=== PATIENT | male | born 1985 | race Caucasian/White ===

== ENCOUNTER 2024-01-11 02:53 | Emergency (ER) | payer BC, SELFPAY ==
[2024-01-11 02:54] VITALS: BP 142/90
--- NOTE | 2024-01-11 03:18 | ED.GENMED ---
Addendum entered and electronically signed by Nico Trevino DO 01/11/24 09:44:
Call from radiology over read IV contrast scan shows possible renal cell carcinoma
Reviewed over [place] text with radiology and urology who knows the patient from himprior procedure the office will follow-up with him
I called the patient's cell phone went right to voicemail unable to leave a message I called his home phone I reviewed the above with his , to be expecting a call from urology, and the importance of following up with them, returning to the ER if
worsening symptoms
Original Note:
History of Present Illness
<YOHAN Michael - Last Filed: 01/11/24 06:38>
General
Chief Complaint: Flank Pain
Source: patient
Exam Limitations: none
Time Seen by Provider: 01/11/24 03:03
Nursing documentation reviewed up to this point in time: agreed with
Travel History
Have you had any contact with someone who has COVID-19?: No
Do you have any symptoms of coronavirus? Fever > 100 degrees, chills, cough, shortness of breath, sore throat, loss of taste or smell, muscle aches, or headache?: No
History of Present Illness
History of Present Illness:
This is a 38 year old male, with a PMH of kidney stones, who presents to the ED c/o Left sided flank pain x 5 hours. Pt states he had surgery 2 months ago to remove a kidney stone and was told he also had 3 other stones that were not obstructing at
that time. Tonight, the pain started after he ate wings for dinner and it has been a worsening constant pain. He adds that the pain has begun to radiate down to the left side of his abdomen. He is also having associated urinary urgency, nausea, and
1 episode of emesis. Pt denies any fever, CP, SOB, dysuria, hematuria, frequency, diarrhea, or constipation.
Pt denies alcohol, tobacco, or drug use. He is not currently taking any medications. He has a family history of kidney stones in his mother.
Past History
<YOHAN Michael - Last Filed: 01/11/24 06:38>
Past History
ED Past Medical History: Other (Kidney stones)
ED Past Surgical History: Urological (kidney stone extraction)
Patient has exhibited threatening behavior?: No
Social History
Tobacco: Non-smoker
Alcohol: None
Drug: None
Family History
Family History: Diabetes, CAD and Other (kidney stones)
Phy Exam
<YOHAN Michael - Last Filed: 01/11/24 06:38>
General Physical Exam
General Presentation: moderate distress and other (pt is actively pacing around the room trying to get into a comfortable position)
General age: appears stated age
General Skin: warm and dry
General Habitus: normal
General Mental: alert
General Hydration: appears well hydrated
ENT Exam
ENT Exam: pharynx normal, neck supple, normocephalic and swallowing well
Eye Exam
Eye Exam: PERRL
Cardiovascular Exam
Cardiovascular Exam: regular rate/rhythm, no edema, no murmur and normal peripheral pulses
Heart Sounds: normal
Pulmonary Exam
Pulmonary Exam: lungs clear, no respiratory distress, no rales, no crackles, no rhonchi, no wheezing and no cough
Gastrointestinal Exam
Gastrointestinal Exam: normal bowel sounds, non tender, soft, non distended and cva tenderness (left sided)
Neurological Exam
Neurological Exam: alert and oriented x3
Musculoskeletal Exam
Musculoskeletal Exam: full ROM and no edema
Skin Exam
Skin Exam: normal color and warm/dry
Psychiatric Exam
Psychiatric Exam: normal mood/affect
Course
<YOHAN Michael - Last Filed: 01/11/24 06:38>
Orders/Labs/Results
Orders:
Orders
01/11/24 03:17
CT Abd/pelvis W Iv Cont Urgent
Comment:
Reason For Exam: Left flank pain
01/11/24 03:26
0.9% Sodium Chloride 1000 ml [Nss] 1,000 ml IV BOLUS
Ketorolac [Toradol] 30 mg IV NOW STA
01/11/24 03:39
Urinalysis Reflex To Culture Urgent
Date Specimen was Collected: 01/11/24
Time Specimen was Collected: 06:56
01/11/24 04:00
Complete Blood Count/With Diff Urgent
Comprehensive Metabolic Panel Urgent
01/11/24 04:13
HYDROmorphone [Dilaudid] 0.5 mg IV NOW STA
01/11/24 05:10
Tamsulosin [Flomax] 0.4 mg PO NOW STA
Abnormal Lab Results
01/11/24
04:00
Hct 38.8 L %
(39.0-52.0)
Absolute Monos (auto) 0.8 H 10^3/uL
(0.1-0.6)
Monocytes % 12.1 H %
(1.7-9.3)
BUN 25 H mg/dl
(9-20)
Glucose 105 H mg/dl
(70-99)
Total Bilirubin 1.4 H mg/dl
(0.2-1.3)
01/11/24 04:00
01/11/24 04:00
Vital Signs
Initial and Last Documented VS:
Initial Vital Signs
Temp Pulse Resp BP Pulse Ox
98.1 F 54 18 142/90 100
01/11/24 02:54 01/11/24 02:54 01/11/24 02:54 01/11/24 02:54 01/11/24 02:54
Last Documented Vital Signs
Temp Pulse Resp BP Pulse Ox
98.1 F 54 18 142/90 100
01/11/24 02:54 01/11/24 02:54 01/11/24 02:54 01/11/24 02:54 01/11/24 02:54
<Michael Mendoza, DO - Last Filed: 01/11/24 07:02>
Orders/Labs/Results
Orders:
Orders
01/11/24 03:17
CT Abd/pelvis W Iv Cont Urgent
Comment:
Reason For Exam: Left flank pain
01/11/24 03:26
0.9% Sodium Chloride 1000 ml [Nss] 1,000 ml IV BOLUS
Ketorolac [Toradol] 30 mg IV NOW STA
01/11/24 03:39
Urinalysis Reflex To Culture Urgent
Date Specimen was Collected: 01/11/24
Time Specimen was Collected: 06:56
01/11/24 04:00
Complete Blood Count/With Diff Urgent
Comprehensive Metabolic Panel Urgent
01/11/24 04:13
HYDROmorphone [Dilaudid] 0.5 mg IV NOW STA
01/11/24 05:10
Tamsulosin [Flomax] 0.4 mg PO NOW STA
Abnormal Lab Results
01/11/24
04:00
Hct 38.8 L %
(39.0-52.0)
Absolute Monos (auto) 0.8 H 10^3/uL
(0.1-0.6)
Monocytes % 12.1 H %
(1.7-9.3)
BUN 25 H mg/dl
(9-20)
Glucose 105 H mg/dl
(70-99)
Total Bilirubin 1.4 H mg/dl
(0.2-1.3)
01/11/24 04:00
01/11/24 04:00
Vital Signs
Initial and Last Documented VS:
Initial Vital Signs
Temp Pulse Resp BP Pulse Ox
98.1 F 54 18 142/90 100
01/11/24 02:54 01/11/24 02:54 01/11/24 02:54 01/11/24 02:54 01/11/24 02:54
Last Documented Vital Signs
Temp Pulse Resp BP Pulse Ox
98.1 F 54 18 142/90 100
01/11/24 02:54 01/11/24 02:54 01/11/24 02:54 01/11/24 02:54 01/11/24 02:54
<YOHAN Michael - Last Filed: 01/11/24 06:38>
*Critical Care Note
Total Time (30-74mins, 75-104mins- exclusive of procedures): Not Applicable
ED Attending Note
<YOHAN Michael - Last Filed: 01/11/24 06:38>
-
Portions of this chart may have been created with voice recognition software.� Occasional wrong word or��sound alike� substitutions may have occurred due to the inherent limitations of voice recognition software.
<Michael Mendoza DO - Last Filed: 01/11/24 07:02>
ED Attending Note
Patient seen and examined by attending physician: Yes
I performed the substantive portion of visit, reviewed & personally made and approve the management plan that is documented in note by myself or GARCÍA.: Yes
ED Attending Note:
Pleasant 38-year-old male presents with left-sided flank pain that has been present for the last 5 hours. Patient states that driving was especially painful today especially when going over bumps. Patient has a past medical history significant for
kidney stone and states that he had to have urological surgery 2 months ago for his most recent stone. Patient reports having the pain after eating dinner tonight. Patient denies fever, chills, nausea or vomiting. Has had normal bowel movements.
Patient was seen in conjunction with the PA student. I have reviewed and agree with the history and treatment plan presented. On my independent physical exam, patient is awake, alert, and oriented x3, moderate acute distress. Heart regular rate
and rhythm. Lungs clear to auscultation bilaterally. Abdomen has some suprapubic tenderness palpation. Left CVA tenderness.
Discharge Plan
Departure
Patient with high blood pressure during this ER visit?: Yes
Condition: Good
Discharge Problem:
Kidney stone
Instructions: How to Strain Your Urine, Narcotic Pain Medication
Prescriptions:
New
tamsulosin [Flomax] 0.4 mg capsule
0.4 mg PO DAILY Qty: 7 0RF
oxycodone-acetaminophen [Percocet] 5-325 mg tablet
1 tab PO Q4HPRN PRN (Reason: pain) Qty: 10 0RF
diclofenac sodium 75 mg tablet,delayed release (DR/EC)
75 mg PO BID Qty: 10 0RF
Referrals:
Guillermo Zhao MD [Active] -
PRIVATE,PHYSICIAN [Family Provider] -
Activity Restrictions/Additional Instructions:
Your prescriptions were sent electronically to the pharmacy that you specified.
It was a pleasure meeting you and taking part in your care. We hope for your continued healing and wellness.
Please read discharge instructions in their entirety. However, they are for general education and may not describe your exact diagnosis at discharge. Information on your ER visit and medical conditions were discussed with you along with appropriate
follow up information...
If indicated, please take your medications as instructed and indicated on discharge paperwork.
Please schedule a follow up appointment as directed. Call to schedule an appointment
Please return to the emergency department with ANY change in, persisting, or worsening of symptoms. If any of your symptoms do not improve, or persist, or become more severe within 6-12 hours, please return to the emergency department for further
care.
Please return to the emergency department if you develop a headache, neck pain/stiffness, fever greater than 100.4F, chest pain, shortness of breath, persistent nausea, vomiting, slurred speech, difficulty walking, numbness/tingling, weakness, signs
of infection or any other symptoms that are worrisome to you.
If you have any questions or concerns please do not hesitate to call the Hospital at or E-mail me directly at [email or web address]
Interventions
Interventions:
*Risk Screen - Suicide Last Done: 01/11/24 02:54
*General Assessment Last Done: 01/11/24 02:54
*Neglect/Abuse Screening Last Done: 01/11/24 02:54
ED- Fall Risk Assessment Last Done: 01/11/24 02:54
*ED COVID-19 Vaccine History Last Done: 01/11/24 02:54
WO-Qjqhsf-Hjomcsgcij Assessment Last Done: 01/11/24 03:37
ED-Male Genitourinary Assessment Last Done: 01/11/24 03:37
[2024-01-11 03:37] VITALS: BMI 23.6
[2024-01-11] MEDS: TORADOL 30 MG IV (03:53)
[2024-01-11] MEDS: NSS 1000 IV (03:57)
[2024-01-11 04:09] LABS: % Basophils 0.5 % (0-2); % Eosinophils 0.5 % (0-6); % Immature Granulocytes 0.2 % (0-0.5); % Monocytes 12.1 % (1.7-9.3); % Neutrophils 47.7 % (42.2-75.2); Absolute Lymphocytes 2.5 10^3/uL (1.2-3.4); Absolute Monocytes 0.8 10^3/uL (0.1-0.6); Hematocrit 38.8 % (39.0-52.0); Hemoglobin 13.9 g/dL (13.0-18.0); Mean Corp Hgb Conc. 35.8 g/dL (33.0-37.0); Mean Corpuscular Hgb 29.3 pg (27.0-31.0); Mean Corpuscular Volume 81.9 fL (80.0-94.0); Mean Platelet Volume 8.9 fL (7.4-10.4); Nucleated Red Blood Cells % 0 % (-); Platelet Count 209 10^3/uL (130-400); Red Blood Cell Count 4.74 10^6/uL (4.70-6.10); Red Cell Dist. Width 12.8 % (11.5-14.5); White Blood Cell Count 6.3 10^3/uL (4.8-10.8)
[2024-01-11] MEDS: DILAUDID 0.5 MG IV (04:34)
[2024-01-11 04:49] LABS: ALT (SGPT) 38 U/L (0-50); AST (SGOT) 38 U/L (17-59); Albumin 4.2 g/dl (3.5-5.0); Alkaline Phosphatase 68 U/L (38-126); Blood Urea Nitrogen 25 mg/dl (9-20); Calcium 8.7 mg/dl (8.4-10.2); Carbon Dioxide 29 mmol/L (22-30); Chloride 103 mmol/L (98-107); Estimated Creatinine Clearance 90 ml/min; Glucose 105 mg/dl (70-99); Potassium 3.6 mmol/L (3.5-5.1); Sodium 136 mmol/L (135-145); Total Bilirubin 1.4 mg/dl (0.2-1.3); Total Protein 6.8 g/dl (6.3-8.2); eGFR > 60.00
[2024-01-11] MEDS: FLOMAX 0.400000000000000022 MG PO (06:00)
[2024-01-11 07:07] VITALS: BP 119/56
[2024-01-11 07:42] LABS: Urine Albumin Negative (Neg - Trace); Urine Bilirubin Negative (Negative); Urine Character Clear (Clear); Urine Color Yellow; Urine Glucose Negative (Negative); Urine Ketone 2+ (Negative); Urine Leukocyte Trace (Negative); Urine Nitrite Negative (Negative); Urine Occult Blood Negative (Negative); Urine Urobilinogen Negative (Neg - 1+)
[2024-01-11 08:14] LABS: Urine Red Blood Cell 0-2 /HPF (0-2); Urine Squamous Cell 0-2 /LPF (Few)
[2024-01-11 08:15] LABS: Urine Bacteria Few (Negative)
[2024-01-11] MEDS: PERCOCET 5/325 1 TABLET PO (08:48)
== END 2024-01-11 09:04 | disposition home or self-care (01) ==
LOC: EMR 02:53
PROVIDERS: EMERGENCY PHYSICIAN Student in an Organized Health Care Education/Training Program
DX: N20.0 Calculus of kidney (principal); Z82.49 Family history of ischemic heart disease and other diseases of the circulatory system; Z83.3 Family history of diabetes mellitus; Z87.442 Personal history of urinary calculi
CPT/HCPCS: 99284; 74177; 80053; 81003; 81015; 85025; Q9967

== ENCOUNTER 2024-06-03 07:51 | Emergency (ER) | payer BC, SELFPAY ==
[2024-06-03 07:57] VITALS: BP 127/84
[2024-06-03] MEDS: TORADOL 15 MG IV (08:59)
[2024-06-03] MEDS: ZOFRAN 4 MG IV (08:59)
--- NOTE | 2024-06-03 08:59 | ED.GENMED ---
History of Present Illness
General
Chief Complaint: Flank Pain
Source: patient
Exam Limitations: none
Time Seen by Provider: 06/03/24 08:01
History of Present Illness
History of Present Illness:
38-year-old male onset of right flank pain 4 days ago. Vague in nature. Some subject fevers. Some nausea. Some urinary urgency and frequency. History of kidney stones. Feels the same. Last Toradol was at 1 AM.
Past History
Past History
ED Past Medical History: Other (Kidney stones)
ED Past Surgical History: Urological (kidney stone extraction)
Patient has exhibited threatening behavior?: No
Social History
Tobacco: Non-smoker
Alcohol: None
Drug: None
Family History
Family History: Diabetes, CAD and Other (kidney stones)
Review of Systems
Review of Systems
All Other Systems: Not applicable
Constitutional: Denies chills
Respiratory: Reports no symptoms
Cardiac: Reports no symptoms
Phy Exam
Physical Exam
Physical Exam:
GENERAL: Alert and oriented in no apparent distress
EYE: Orbits normal.
NECK: Supple
CARDIAC: Regular rate and rhythm without any obvious murmurs.
LUNGS: Clear breath sounds,normal
ABDOMEN: Soft, minimal tenderness right upper quadrant more towards the flank. Mild right CVA tenderness. Small area of ecchymosis where he apparently was pushing with his thumb on the lower back.
NEUROLOGICAL: Alert and oriented , grossly non-focal
SKIN: Warm and dry, no rash or lesion, no discoloration, skin intact.
MUSCULOSKELETAL: No edema,no deformity.Good color
PSYCH: Normal and appropriate interaction.
Course
Orders/Labs/Results
Orders:
Orders
06/03/24 08:37
CT Abd/pel Without Iv Or Oral Urgent
Comment:
Reason For Exam: Right flank pain
IV Insert/Care/Rem.- Treatment PRN
0.9% Sodium Chloride 1000 ml [Nss] 1,000 ml IV BOLUS
Ketorolac [Toradol] 15 mg IV NOW STA
Ondansetron Injectable [Zofran] 4 mg IV NOW STA
06/03/24 08:48
Complete Blood Count/With Diff Urgent
Comprehensive Metabolic Panel Urgent
Lipase Urgent
06/03/24 08:54
Urinalysis Reflex To Culture Urgent
Date Specimen was Collected: 06/03/24
Time Specimen was Collected: 08:49
06/03/24 09:57
HYDROmorphone [Dilaudid] 0.5 mg IV NOW STA
Abnormal Lab Results
06/03/24
08:48
RBC 4.52 L 10^6/uL
(4.70-6.10)
Hct 37.6 L %
(39.0-52.0)
Absolute Monos (auto) 1.1 H 10^3/uL
(0.1-0.6)
Monocytes % 14.0 H %
(1.7-9.3)
Glucose 105 H mg/dl
(70-99)
Total Bilirubin 1.9 H mg/dl
(0.2-1.3)
06/03/24 08:48
06/03/24 08:48
Vital Signs
Initial and Last Documented VS:
Initial Vital Signs
Temp Pulse Resp BP Pulse Ox
98 F 79 18 127/84 99
06/03/24 07:57 06/03/24 07:57 06/03/24 07:57 06/03/24 07:57 06/03/24 07:57
Last Documented Vital Signs
Temp Pulse Resp BP Pulse Ox
98 F 72 16 122/72 98
06/03/24 07:57 06/03/24 12:06 06/03/24 12:06 06/03/24 12:06 06/03/24 12:06
MDM/Problems Addressed
Differential Diagnosis Includes:
Kidney stone clearly #1 on the list. Doubt gallbladder although theoretically a possibility. Will do LFTs and lipase. CT pending. Doubt acute infectious issue although also in the differential
*Radiology
Radiology exam reviewed: preliminary read by ED provider (4 to 5 mm stone right uvj with hydronephrosis.) and radiology read reviewed (3 to 4 mm stone with hydronephrosis right UVJ. Mass left kidney)
*Pulse Oximetry
Patient hypoxic: no
*Critical Care Note
Total Time (30-74mins, 75-104mins- exclusive of procedures): Not Applicable
Data Reviewed
Review of Other/Old Records Reveals: Labs, Records and Radiology Studies
Update Note
Update Note:
Patient feeling well after pain management. Discussed with urology. No signs of infection. Has outpatient follow-up tomorrow. Patient is comfortable going home with outpatient follow-up. Of note patient was updated on this mass that needs
follow-up
ED Attending Note
-
Portions of this chart may have been created with voice recognition software.� Occasional wrong word or��sound alike� substitutions may have occurred due to the inherent limitations of voice recognition software.
Discharge Plan
Departure
Patient Disposition: Home (Routine Discharge)
Date of Disposition: 06/03/24
Time of Disposition: 11:28
Patient with high blood pressure during this ER visit?: Yes
Discharge Problem:
Hydronephrosis with ureteral calculus, Mass left kidney
Instructions: Kidney Stones (DC), BLOOD PRESSURE
Prescriptions:
New
hydrocodone-acetaminophen 5-300 mg tablet
1 tab PO Q4H PRN (Reason: Pain) Qty: 14 0RF
No Action
tamsulosin [Flomax] 0.4 mg capsule
0.4 mg PO DAILY Qty: 7 0RF
oxycodone-acetaminophen [Percocet] 5-325 mg tablet
1 tab PO Q4HPRN PRN (Reason: pain) Qty: 10 0RF
diclofenac sodium 75 mg tablet,delayed release (DR/EC)
75 mg PO BID Qty: 10 0RF
Referrals:
Michael Maharaj MD [Family Provider] -
Activity Restrictions/Additional Instructions:
See your urologist tomorrow
Return sooner with increasing pain or any infectious symptoms
You can continue the Toradol for milder pain only use the Vicodin for increased pain
Your prescription was sent to your pharmacy
Make sure you also follow-up that left kidney mass with the urologist tomorrow
Interventions
Interventions:
*Risk Screen - Suicide Last Done: 06/03/24 07:57
*General Assessment Last Done: 06/03/24 07:57
*Neglect/Abuse Screening Last Done: 06/03/24 07:57
ED- Fall Risk Assessment Last Done: 06/03/24 12:06
*ED COVID-19 Vaccine History Last Done: 06/03/24 12:06
*Nursing Disposition Last Done: 06/03/24 12:06
XM-Acwnhq-Lmkwsavuyr Assessment Last Done: 06/03/24 08:30
ED-Male Genitourinary Assessment Last Done: 06/03/24 08:30
Discharge Date and Time
Discharge Date/Time: 06/03/24 12:07
Print Language: CENTRAL AFRICAN
[2024-06-03] MEDS: NSS 1000 IV (09:01)
[2024-06-03 09:07] LABS: % Basophils 0.1 % (0-2); % Eosinophils 0.1 % (0-6); % Immature Granulocytes 0.3 % (0-0.5); % Lymphocytes 23.1 % (20.5-51.1); % Neutrophils 62.4 % (42.2-75.2); Absolute Lymphocytes 1.7 10^3/uL (1.2-3.4); Absolute Monocytes 1.1 10^3/uL (0.1-0.6); Absolute Neutrophils 4.7 10^3/uL (1.4-6.5); Hematocrit 37.6 % (39.0-52.0); Hemoglobin 13.5 g/dL (13.0-18.0); Mean Corp Hgb Conc. 35.9 g/dL (33.0-37.0); Mean Corpuscular Hgb 29.9 pg (27.0-31.0); Mean Corpuscular Volume 83.2 fL (80.0-94.0); Mean Platelet Volume 9.2 fL (7.4-10.4); Nucleated Red Blood Cells % 0 % (-); Platelet Count 168 10^3/uL (130-400); Red Blood Cell Count 4.52 10^6/uL (4.70-6.10); Red Cell Dist. Width 12.5 % (11.5-14.5); White Blood Cell Count 7.5 10^3/uL (4.8-10.8)
[2024-06-03 09:14] LABS: Urine Albumin Negative (Neg - Trace); Urine Bilirubin Negative (Negative); Urine Character Clear (Clear); Urine Color Yellow; Urine Glucose Negative (Negative); Urine Ketone Negative (Negative); Urine Leukocyte Negative (Negative); Urine Nitrite Negative (Negative); Urine Occult Blood Negative (Negative); Urine Urobilinogen Negative (Neg - 1+)
[2024-06-03 09:19] LABS: ALT (SGPT) 19 U/L (0-50); AST (SGOT) 21 U/L (17-59); Albumin 3.9 g/dl (3.5-5.0); Alkaline Phosphatase 62 U/L (38-126); Blood Urea Nitrogen 12 mg/dl (9-20); Calcium 8.9 mg/dl (8.4-10.2); Carbon Dioxide 29 mmol/L (22-30); Chloride 104 mmol/L (98-107); Glucose 105 mg/dl (70-99); Lipase 75 U/L (23-300); Potassium 4.6 mmol/L (3.5-5.1); Sodium 137 mmol/L (135-145); Total Bilirubin 1.9 mg/dl (0.2-1.3); Total Protein 6.4 g/dl (6.3-8.2); eGFR > 60.00
[2024-06-03] MEDS: DILAUDID 0.5 MG IV (10:04)
[2024-06-03 12:06] VITALS: BP 122/72
== END 2024-06-03 12:07 | disposition home or self-care (01) ==
LOC: EMR 07:51
PROVIDERS: EMERGENCY PHYSICIAN Emergency Medicine; FAMILY PHYSICIAN Family Medicine
DX: N13.2 Hydronephrosis with renal and ureteral calculous obstruction (principal); R11.0 Nausea; R39.15 Urgency of urination; R35.0 Frequency of micturition; N28.89 Other specified disorders of kidney and ureter; Z87.442 Personal history of urinary calculi; Z88.1 Allergy status to other antibiotic agents; Z88.0 Allergy status to penicillin
CPT/HCPCS: 99284; 96374; 96375 ×2; 96361; 74176; 80053; 81003; 83690; 85025

== ENCOUNTER → 2024-10-24 14:29 | Outpatient (REF) | payer BC, SELFPAY | LOC: RAD 14:29 | PROVIDERS: ATTENDING PHYSICIAN Specialist | DX: D41.02 Neoplasm of uncertain behavior of left kidney (principal) | CPT/HCPCS: 74178; Q9967 ==